=== PATIENT | female | born 1960 | race Caucasian/White ===

== ENCOUNTER 2019-02-09 23:49 | Inpatient (IN) ==
[2019-02-09] MEDS ORDERED: NS 1,000 ML IV ONE (23:56)
[2019-02-09] MEDS ORDERED: HUMULIN R IV ONE (23:56)
[2019-02-10 00:18] LABS: ALLEN TEST YES; BE -7.4 mmoll (-3.0-3.0); BLOOD TYPE ARTERIAL; HCO3-(ACT) 19.1 mmoll (20.0-26.0); METHB 1.2 % (0.0-1.5); O2(CT) 16.3 mL/dL (15.0-23.0); O2HB 93.8 % (95.0-99.0); PCO2(98.6) 31 mmHg (35-45); PO2(98.6) 70 mmHg (60-100); SAMPLE BLOOD; THB 12.3 g/dL (11.5-17.4); pH(98.6) 7.35 (7.35-7.45)
[2019-02-10 00:19] LABS: MODALITY ROOM AIR
[2019-02-10] MEDS ORDERED: TYLENOL PO ONE (00:43)
[2019-02-10 01:17] LABS: BASO# 0.01 X1000 (0.0-0.2); BASO% 0.1 % (0.0-0.8); HEMATOCRIT 37.7 % (37.0-47.0); HEMOGLOBIN 12.7 g/dL (12.0-16.0); IMM GRAN# 0.04 X1000 (0.0-0.04); IMM GRAN% 0.2 % (0.0-0.5); LYMPH% 3.8 % (20.5-51.1); MCH 29.5 PG (27-31); MCHC 33.7 g/dL (33-37); MCV 87.5 FL (81-99); MONO# 1.38 X1000 (0.11-0.59); MONO% 7.4 % (1.7-9.3); MPV 12.5 FL (7.4-10.4); NEUT# 16.49 X1000 (1.4-6.5); NEUT% 88.5 % (42.2-75.2); PLT 164 X1000 (130-400); RBC 4.31 XMIL (4.2-5.4); RDW 12.5 % (11.5-14.5); WBC 18.62 X1000 (4.8-10.8)
[2019-02-10 01:25] LABS: INR 0.99; PROTIME 13.8 Seconds (11.0-16.0); PTT 27.5 Seconds (22.3-41.8)
[2019-02-10 01:41] LABS: ALB/GLOB RATIO 1.8; ALBUMIN 4.7 g/dL (3.5-5.0); CALCIUM 10.4 mg/dL (8.8-10.2); CREATININE 1.2 mg/dL (0.5-0.9); MAGNESIUM 1.3 mg/dL (1.5-2.7); PHOSPHORUS 2.2 mg/dL (2.7-4.5); TOTAL BILIRUBIN 0.46 mg/dL (0.20-1.00); TOTAL PROTEIN 7.3 g/dL (6.3-8.3)
[2019-02-10 01:42] LABS: POTASSIUM 6.2 mmol/L (3.5-5.1)
[2019-02-10 01:42] LABS: URINE SOURCE CLEAN CATCH
[2019-02-10 01:47] LABS: BILIRUBIN URINE NEGATIVE (NEGATIVE); BLOOD URINE NEGATIVE (NEGATIVE); COLOR YELLOW; GLUCOSE URINE >1000 mg/dL (NEGATIVE); KETONE URINE 20 mg/dL (NEGATIVE); LEUKOCYTES URINE TRACE (NEGATIVE); NITRITE URINE NEGATIVE (NEGATIVE); PH URINE 5.5; PROTEIN URINE 30 mg/dL (NEGATIVE); SP GRAVITY URINE 1.018; TURBIDITY URINE CLEAR (CLEAR); UR EPITHELIAL CELLS <10 /HPF (<10); URINE BACTERIA 1+ /HPF; URINE RBC <10 /HPF (<10); UROBILINOGEN URINE NORMAL (NORMAL)
[2019-02-10] MEDS ORDERED: ROCEPHIN 1 GM in NS 50 ML IV ONE (01:49)
[2019-02-10] MEDS ORDERED: MAGNESIUM SULFATE 2 GM/S.W.I. 2 GM/50 ML IVPB IV ONE (01:57)
[2019-02-10] MEDS ORDERED: KAYEXALATE PO ONE (01:57)
[2019-02-10] MEDS ORDERED: SODIUM PHOSPHATE 30 MEQ in NS 250 ML IV ONE (01:59)
[2019-02-10] MEDS ORDERED: CALCIUM GLUCONATE 1 GM in NS 50 ML IV ONE (02:05)
[2019-02-10] MEDS ORDERED: D50W SYRINGE IV ONE (02:05)
--- NOTE | 2019-02-10 02:08 | PROVIDER DOCUMENTATION ---
This chart was entered by Chester Gonzales Scribe, acting as scribe for Nyla Guan MD. HPI-General Adult - General Chief Complaint: High Blood Sugar Stated Complaint: hyperglycemia Time Seen by Provider: 02/09/19 23:50 Source: patient Allergies/Adverse Reactions: Patient Allergies Allergy/AdvReac Type Severity Reaction Status Date / Time olanzapine [From Zyprexa] Allergy Intermediate CONSTIPATIO Verified 12/10/17 23:12 N butalbital Allergy Mild FATIGUE Verified 12/10/17 23:12 fexofenadine HCl * Allergy Mild FLUSHING Verified 12/10/17 23:12 [From Neisha] phenobarbital Allergy Mild weight gain Verified 12/10/17 23:12 egg Allergy Unknown Unknown Verified 12/10/17 23:12 chlorpheniramine maleate * Allergy feel like Verified 12/10/17 23:12 [From Aller-Chlor a drunk Decongestant] metformin Allergy drops Verified 12/10/17 23:12 blood sugar too low pseudoephedrine HCl * Allergy Unknown Verified 12/10/17 23:12 [From Aller-Chlor Decongestant] clonazepam [From Klonopin] AdvReac Mild Agitation Verified 12/10/17 23:12 haloperidol [From Haldol] AdvReac Mild DRY MOUTH Verified 12/10/17 23:12 haloperidol lactate * AdvReac Mild DRY MOUTH Verified 12/10/17 23:12 [From Haldol] quetiapine fumarate * AdvReac Mild FATIGUE Verified 12/10/17 23:12 [From Seroquel] risperidone [From Risperdal] AdvReac Mild ABDOMINAL Verified 12/10/17 23:12 PAIN codeine AdvReac ANAPHYLAXIS Verified 12/10/17 23:12 hydrocodone AdvReac feel like Verified 12/10/17 23:12 a drunk ziprasidone [From Geodon] AdvReac tardive Verified 12/10/17 23:12 dyskinesia Home Medications: Home Medication List Medication Instructions Recorded Confirmed Last Taken Type Cholecalciferol (Vit D3) [Vitamin 5,000 unit PO DAILY #30 cap 12/22/17 Unknown Rx D] Levetiracetam [Keppra] 500 mg PO BID #60 tab 12/22/17 Unknown Rx Levothyroxine [Synthroid] 25 microgm PO QAM #30 tab 12/22/17 Unknown Rx Lisinopril 40 mg PO DAILY #30 tab 12/22/17 Unknown Rx Montelukast Sodium 10 mg PO DAILY #30 tab 12/22/17 Unknown Rx Risperidone [Risperdal] 2 mg PO BID #120 tab 12/22/17 Unknown Rx Rosuvastatin Calcium 20 mg PO DAILY #30 tab 12/22/17 Unknown Rx Sitagliptin [Januvia] 100 mg PO DAILY #60 tab 12/22/17 Unknown Rx Magnesium Cl D.r. [Slow-Mag] 64 mg PO DAILY #30 tab 12/23/17 Unknown Rx - History of Present Illness -Gen Adult Nature of Presenting Problems: Pt is a 58 y.o F presents to the [facility] and reports not feeling well for a couple of weeks. She reports at home a blood sugar greater than 400. Pt reports headache, ear pain, nausea and vomiting. Location of Pain/Injury: reports: generalized (not feeling well) Pain Radiation: reports: no radiation Quality of Pain: reports: aching Severity: reports: moderate Onset/Duration: reports: other (couple weeks) Timing: reports: still present Associated Symptoms: reports: EENT symptoms, fever/chills, headaches, sinus congestion/drainage, vomiting. denies: diarrhea, rash, syncope Similar Symptoms Previously?: No Recently seen or treated by another doctor?: No - Diabetes Related Context Context: reports: high blood sugar Review of Systems - Adult - REVIEW OF SYSTEMS - ADULT Constitutional: denies: chills, fever Eyes: reports: blurred vision. denies: discharge, dry eyes Ears, Nose, Mouth & Throat: reports: ear pain, sinus problem Cardiovascular: denies: chest pain, edema Respiratory: denies: shortness of breath, wheezing Gastrointestinal: reports: nausea, vomiting. denies: abdominal pain Genitourinary: denies: dysuria, discharge Musculoskeletal: denies: back pain, neck pain Integumentary: reports: no symptoms reported Neurological: reports: headache/migraines. denies: dizziness/vertigo, slurred speech Psychiatric: reports: no symptoms reported Endocrine: reports: no symptoms reported Hematologic/Lymphatic: reports: no symptoms reported Allergic/Immunologic: reports: no symptoms reported All Other Systems: Reviewed and Negative Past History - Adult - PAST MEDICAL HISTORY-ADULT Review of Records: reports: Old Records Reviewed, Nursing Assessment Review, Medications Reviewed Major Childhood Illnesses: reports: denies history Cardiovascular: reports: HTN Respiratory: reports: asthma Gastrointestinal: reports: denies history Obstetrical/Gynecological: reports: denies history Genitourinary: reports: denies history Musculoskeletal: reports: denies history Neurological: reports: Seizures/Epilepsy Psychiatric: reports: bipolar, other (schizoeffective d/o) Endocrine/Immune: reports: Diabetes Other Conditions: reports: denies history - PRIOR SURGERIES/PROCEDURES Surgical/Procedure History: reports: - IMMUNIZATION STATUS Childhood Immunizations: See Nurse Assessment Flu Vaccine: See Nurse Assessment - FAMILY HISTORY Family History: reviewed, not pertinent - SOCIAL HISTORY Smoking: cigarettes, greater than 1 pack/day Living Situation: family Physical Exam-General - PHYSICAL EXAM-ADULT Initial Vital Signs Reviewed: Yes - CONSTITUTIONAL General Appearance: alert, no apparent distress - EYES Eyes: PERRL/EOMI, pink conjunctivae - HEAD, EARS, NOSE, MOUTH & THROAT HENMT: moist mucous membranes, normal ENT inspection, pharynx normal - NECK Neck: full range of motion, supple, normal inspection - RESPIRATORY Respiratory: lungs clear, normal breath sounds, no pleuratic chest pain, no respiratory distress, no accessory muscle use - CARDIOVASCULAR Cardiovascular: normal peripheral pulses, regular rate, rhythm - GASTROINTESTINAL (ABDOMEN) Abdominal Exam: normal bowel sounds, soft, tenderness (diffuse mild) - MUSCULOSKELETAL Back Exam: normal inspection, no CVA tenderness, no vertebral tenderness Extremity: normal range of motion, non-tender, normal gait, normal inspection, no pedal edema - SKIN Integumentary: normal color, normal turgor, warm/dry - NEUROLOGIC Neurologic: grossly normal, no motor/sensory deficits - PSYCHIATRIC Psych/Mental Status: normal mood/affect, normal thought content, normal thought process, oriented x 3 Progress - PLAN OF CARE/RESULTS Progress/Plan/Lab Results: Vital Signs - 8 hr 02/10/19 00:02 Temperature 99.0 F Pulse Rate 94 H Respiratory Rate 16 Blood Pressure 156/85 O2 Sat by Pulse Oximetry 95 Laboratory Results - last 24 hr 02/09/19 02/09/19 23:51 23:55 Specimen Type ARTERIAL Sample Site R RADIAL pH 7.35 pCO2 31 L pO2 70 HCO3 19.1 L Base Excess -7.4 L Oxyhemoglobin 93.8 L ABG O2 Sat (Calculated) 16.3 ABG O2 Saturation 97.0 ABG Carboxyhemoglobin 2.10 ABG Methemoglobin 1.2 Vinnie Test YES A-a O2 Difference 41.0 Total Hemoglobin 12.3 Lactate 1.70 Blood Gas Modality ROOM AIR FiO2 % 21.0 POC Glucose 485 H Orders Category Date Time Status Cardiac Monitoring DIRECTED Care 02/09/19 23:51 Active Finger Stick Blood Sugar (ED) DIRECTED Care 02/09/19 23:51 Active Oxygen Therapy- ED Nursing DIRECTED Care 02/09/19 23:51 Active Saline Loc NOW Care 02/09/19 23:51 Active CHEST-PORTABLE [RAD] Stat Exams 02/09/19 23:[address] MAXILLOFACIAL(SINUS) W/O CO [CT] Stat Exams 02/10/19 00:44 Taken ABG [RESP] Routine Lab 02/09/19 23:51 Completed ACETONE SERUM [CHEM] Stat Lab 02/10/19 00:42 Ordered CBC WITH ELECTRONIC DIFF [HEME] Stat Lab 02/10/19 00:59 Ordered CK PROFILE [SP CHEM] Stat Lab 02/10/19 00:59 Ordered COMPREHENSIVE METABOLIC PANEL [CHEM] Stat Lab 02/10/19 00:59 Ordered LACTATE, PLASMA [CHEM] Stat Lab 02/10/19 00:59 Ordered MAGNESIUM [CHEM] Stat Lab 02/10/19 00:59 Ordered PHOSPHORUS [CHEM] Stat Lab 02/10/19 00:59 Ordered PROTIME WITH INR [COAG] Stat Lab 02/10/19 00:59 Ordered PTT [COAG] Stat Lab 02/10/19 00:59 Ordered TROPONIN T Stat Lab 02/10/19 00:59 Ordered URINALYSIS [URINALYSIS] Stat Lab 02/09/19 23:52 Uncollected 0.9% Sodium Chloride Inj [Ns] 1,000 ml Med 02/09/19 23:56 Discontinued IV 999 mls/hr Acetaminophen [Tylenol] Med 02/10/19 00:43 Discontinued 1,000 mg PO NOW ONE Insulin Human Regular [Humulin R] Med 02/09/19 23:56 Discontinued 10 unit IV NOW ONE Result Diagrams: 02/10/19 00:55 02/10/19 00:55 - CONSULTS/PCP/HOSPITALIST Notification #1 *Consult/PCP/Hospitalist*: Dr. Garza Time Discussed: 02:06 Consult Disposition: Admit Departure - Departure Date of Disposition Decision: 02/10/19 Time of Disposition Decision: 02:06 DIAGNOSIS: Hyperglycemia due to type 1 diabetes mellitus, Electrolyte imbalance, Transaminitis, SIRS (systemic inflammatory response syndrome) Disposition: ADMITTED INPATIENT 09 Certified Medical Emergency: Emergent Condition: Stable - Critical Care Note This patient required my direct & personal management of CC.: No Attestation - Physician/ PANCHO Attestation Patient care was provided by Advanced Practice Provider:: No The physician spent face to face time with patient:: Yes Advanced Practice Provider documentation review:: Supervising physician onsite and consulted in the evaluation and care of this patient. The physician did have a face to face encounter with the patient. This chart was documented by the indicated scribe, (Chester Gonzales Scribe) and accurately reflects the services I performed and decisions made by me, Nyla Guan MD, as attested by the provider's signature.
--- NOTE | 2019-02-10 04:36 | HISTORY AND PHYSICAL ---
PRIMARY CARE PHYSICIAN: Dr. Garcia. CHIEF COMPLAINT: Elevated blood glucose. Not feeling well. HISTORY OF PRESENTING ILLNESS: The patient is a 58-year-old female with a history of diabetes mellitus type 2, hypertension, hyperlipidemia, and seizure disorder who had presented to the emergency department with 2 days history of having nausea and not feeling well. The patient states that she was not taking her insulin because she did not have any food at home and she was afraid her blood glucose will bottom out. She was brought to the emergency department and it was noted that she had elevated blood glucose in the 400 ranges. She was given IV insulin, it was also noted that her potassium was elevated and this was stabilized in the ED. Due to her overall presenting symptoms she will require admission for further management. At the time of my examination she had denied any fever, chills, chest pain, shortness of breath or any weight changes, but complained of sinus pressure, nausea, and not feeling well. PAST MEDICAL HISTORY: Include diabetes mellitus type 2, hypertension, hyperlipidemia, seizure disorder. PAST SURGICAL HISTORY: Left knee surgery. ALLERGIES: To olanzapine, fexofenadine, phenobarbital. CURRENT MEDICATIONS: Include Keppra 500 mg p.o. b.i.d., levothyroxine 25 mcg p.o. q.a.m., lisinopril 40 mg p.o. daily, Risperdal 2 mg p.o. b.i.d., Rosuvastatin 20 mg p.o. daily, Januvia 100 mg p.o. daily. SOCIAL HISTORY: She is a former smoker. Denies any history of alcohol or illicit drug use. FAMILY HISTORY: No history of coronary disease. REVIEW OF SYSTEMS: Fourteen point review of systems is as in HPI. Other systems negative. PHYSICAL EXAMINATION: GENERAL: A cooperative friendly female. She is resting comfortably now. VITAL SIGNS: Temperature 99.0 degrees, pulse 94, respirations 16, blood pressure 106/85. HEENT: Atraumatic, normocephalic. Extraocular movements intact. There is left maxillary sinus tenderness. CHEST: Clear to auscultation. CARDIOVASCULAR: Regular rate and rhythm. ABDOMEN: Soft. Positive bowel sounds. EXTREMITIES: No edema. NEUROLOGIC: She is awake, alert and oriented x3. GENITOURINARY: No bladder distention. SKIN: Warm. LABORATORIES AND STUDIES: WBC is 18.62, hemoglobin 12.7, hematocrit 37.7, platelets 164,000. Sodium 132, potassium 6.2, chloride 98, CO2 is 19, BUN is 32, creatinine is 1.2, glucose is 414. ASSESSMENT: This is a 58-year-old female with a history of diabetes mellitus type 2, hypertension, hyperlipidemia and seizure disorder, who presented to emergency department complaining of having nausea and not feeling well, and also elevated blood glucose. She was evaluated in the emergency department and her laboratories had shown that she had elevated potassium and elevated blood glucose. Her hyperkalemia was stabilized and she was given intravenous insulin for her blood glucose, and subsequently she will require admission for further management. 1. Diabetes mellitus type 2 with hyperglycemia. 2. Hyperkalemia. 3. Leukocytosis. 4. Suspected left maxillary sinusitis. 5. Seizure disorder. PLAN: 1. We will admit the patient to medical floor with telemetry. 2. Continue with IV fluids, and sliding scale insulin regimen. 3. We will monitor her electrolytes closely. 4. Check blood cultures and start the patient on empiric antibiotics. 5. Continue the patient on Flonase to help with her congestion. 6. Restart her home medications 7. Put the patient on DVT prophylaxis with SCDs. 8. We will continue to follow, reassess and make further recommendation based on the patient's clinical course. cc: Alen Garza MD MTDD
[2019-02-10] MEDS ORDERED: FLONASE NAS ONE (04:56)
--- NOTE | 2019-02-10 05:53 | Diag Imaging Result Doc PS360 ---
EXAM: CT MAXILLOFACIAL(SINUS) W/O CO HISTORY: mastoiditis left TECHNIQUE: CT sinuses without contrast COMPARISON: None. FINDINGS: The mastoid sinuses are well developed and filled with air. There is no sinus opacification. No air-fluid levels. No mucosal thickening. No bone destruction. No bony expansion. IMPRESSION: No sinusitis. A preliminary report was given at 1:36 AM Electronically signed by Guanaco Vega 02/10/2019 5:50 AM
--- NOTE | 2019-02-10 05:58 | Diag Imaging Result Doc PS360 ---
EXAM: CHEST-PORTABLE HISTORY: infection TECHNIQUE: Portable chest single view COMPARISON: 08/03/2016 FINDINGS: The lungs are well expanded. The heart is not enlarged. The vessels are not distended. There are no infiltrates. No effusion identified. IMPRESSION: No pneumonia. Electronically signed by Guanaco Vega 02/10/2019 5:56 AM
[2019-02-10] MEDS: HUMULIN R SUBQ SCH ×4 (06:00→21:15)
[2019-02-10] MEDS: LEVAQUIN 500 MG/D5W 500 MG/100 ML IVPB IV SCH (07:08)
[2019-02-10] MEDS: NS 1,000 ML IV SCH ×2 (07:08→18:13)
--- NOTE | 2019-02-10 07:28 | EKG Report ---
Test Performed on : 02/10/2019 02:28:01 AM Test Reason : CP Blood Pressure : / mmHG Vent. Rate : 091 BPM Atrial Rate : 091 BPM P-R Int : 154 ms QRS Dur : 088 ms QT Int : 340 ms P-R-T Axes : 067 043 058 degrees QTc Int : 418 ms Normal sinus rhythm. Normal ECG When compared with ECG of 10-DEC-2017 23:09, Vent. rate has increased BY 34 BPM Unconfirmed Result
[2019-02-10 07:30] LABS: EOS# 0.01 X1000 (0.0-0.7); EOS% 0.1 % (0.0-10.0); HEMATOCRIT 38.3 % (37.0-47.0); LYMPH# 0.66 X1000 (1.2-3.4); LYMPH% 8.9 % (20.5-51.1); MCH 30.1 PG (27-31); MCHC 33.9 g/dL (33-37); MCV 88.7 FL (81-99); MONO# 0.07 X1000 (0.11-0.59); MONO% 0.9 % (1.7-9.3); MPV 11.8 FL (7.4-10.4); NEUT# 6.67 X1000 (1.4-6.5); NEUT% 90.1 % (42.2-75.2); PLT 147 X1000 (130-400); RBC 4.32 XMIL (4.2-5.4); RDW 12.8 % (11.5-14.5); WBC 7.41 X1000 (4.8-10.8)
[2019-02-10 07:36] LABS: CALCIUM 10.3 mg/dL (8.8-10.2); CREATININE 1.2 mg/dL (0.5-0.9); POTASSIUM 4.5 mmol/L (3.5-5.1)
[2019-02-10 07:59] LABS: BANDS 8 % (0-1); LYMPHS 2 % (21-51); SEGS 88 % (42-75)
[2019-02-10] MEDS: TYLENOL PO PRN (09:35)
[2019-02-10 10:02] LABS: FREE T4 1.03 ng/dL (0.93-1.70); TSH 1.28 uIUmL (0.27-4.20)
[2019-02-10] MEDS: JANUVIA PO SCH (11:56)
[2019-02-10] MEDS: KEPPRA PO SCH ×2 (11:56→21:11)
[2019-02-10] MEDS: SINGULAIR PO SCH (11:56)
[2019-02-10] MEDS: PRINIVIL PO SCH (11:57)
[2019-02-10] MEDS: BASAGLAR SUBQ SCH (11:57)
[2019-02-10] MEDS: SLOW-MAG PO SCH (11:57)
--- NOTE | 2019-02-10 17:29 | PROGRESS NOTE ---
DATE: 02/10/2019 SUBJECTIVE: The patient was admitted early this morning with elevated blood sugar, not feeling well. This is a 58-year-old with a history of diabetes type 2, hypertension, hyperlipidemia, seizure disorder, presented to the emergency department with a 2-day history of having nausea and not feeling well. The patient states she was not taking her insulin because she did not have any food at home and she was afraid her blood sugar would bottom out. Brought to the emergency room and had elevated blood sugar 400. Given IV insulin. It was also noted that her potassium was elevated and stabilized that in the emergency room. Was admitted for follow up to see if we get her sugars down. PAST MEDICAL HISTORY: 1. Diabetes mellitus type 2. 2. Hypertension. 3. Hyperlipidemia. 4. Seizure disorder. 5. Left knee surgery in the past. OBJECTIVE: Vital signs: Today temp 98.3 degrees, pulse 99, respirations 16, blood pressure 145/125, and this has come down to 99/53 with some blood pressure medicine. Lungs: Clear in all lung hughes. Cardiovascular: Regular rhythm and rate without murmur or S3. Abdomen: Soft. Skin: Warm and dry. Blood sugars 374 and 368 were the last 2. LABS: Initially when she came in white count was 18,620, hematocrit 37, platelet count 164,000. This morning white count is 7,410, hematocrit 38, platelet count 147,000. Electrolytes: Sodium 136, potassium 4.5, chloride 99, BUN 29, creatinine 1.2. ASSESSMENT AND PLAN: 1. Diabetes mellitus type 2 with hyperglycemia. 2. Presented with hyperkalemia and this has been corrected. 3. Nausea and says that she is having frequent bowel movements, but does not report any diarrhea. CURRENT MEDICATIONS: She is on vitamin D3 5000 units a day, Prolixin 10 mg at bedtime, insulin glargine 50 units subcutaneous daily, Keppra 500 mg b.i.d., levofloxacin 500 mg IV q.24 hours, Prinivil 40 mg a day, Singulair 10 mg daily, sitagliptin 100 mg daily. She got 1 dose of ceftriaxone yesterday. She is on a diabetic diet. cc: Vinnie Caballero MD
[2019-02-10] MEDS: PROLIXIN PO SCH (21:12)
[2019-02-11] MEDS: TYLENOL PO PRN (00:16)
[2019-02-11] MEDS: NS 1,000 ML IV SCH (04:43)
[2019-02-11] MEDS: HUMULIN R SUBQ SCH ×5 (06:45→22:35)
[2019-02-11] MEDS: JANUVIA PO SCH (09:45)
[2019-02-11] MEDS: LEVAQUIN 500 MG/D5W 500 MG/100 ML IVPB IV SCH (09:45)
[2019-02-11] MEDS: SLOW-MAG PO SCH (09:45)
[2019-02-11] MEDS: KEPPRA PO SCH ×2 (09:45→22:35)
[2019-02-11] MEDS: PRINIVIL PO SCH ×2 (09:45→09:56)
[2019-02-11] MEDS: SINGULAIR PO SCH (09:46)
[2019-02-11] MEDS: VITAMIN D PO SCH (09:46)
[2019-02-11] MEDS ORDERED: INSULIN PEN NEEDLES ONE (10:15)
[2019-02-11] MEDS: BASAGLAR SUBQ SCH (10:20)
[2019-02-11] MEDS: ALPHAGAN 0.2% OPHTH SOLN OPH SCH ×2 (13:09→16:47)
--- NOTE | 2019-02-11 17:14 | PROGRESS NOTE ---
DATE: 02/11/2019 SUBJECTIVE: She is feeling better, a little stronger. She is using the bedside commode, did not seem to have to go the bathroom as much today, but she is urinating pretty frequently. OBJECTIVE: Temperature 97.8 degrees, pulse 82, respirations 20, blood pressure 110/50. Pupils are equal and round. Lungs are clear in all lung hughes. Cardiovascular: Regular rhythm and rate without murmur or S3. Abdomen is soft. Skin is warm and dry. Urine output: 600 mL. I am not sure it was reported yesterday. DIAGNOSTIC STUDIES: Her blood sugars 234 and 284 are the most recent ones. Labs reviewed from the . Hematocrit 38, hemoglobin 13. ASSESSMENT AND PLAN: 1. Diabetes mellitus, type 2. Hyperglycemia seems to be better. 2. Hyperkalemia, which has been corrected. 3. Frequent bowel movements. 4. Weakness. She seems to be doing a little better from those aspects. 5. She has history of schizophrenia. She is on Prolixin 10 mg at bedtime. 6. She has a history of seizures, for which she is on Keppra 500 mg b.i.d. REVIEW OF HER ORDERS: Vitamin D3 of 5000 units a day, Prolixin 10 mg at bedtime, Keppra 500 mg b.i.d., Prinivil 40 mg a day, Levaquin 500 mg IV q.24 h., Januvia 100 mg daily, Singulair 10 mg a day, magnesium chloride 64 mg a day. NOTE: She seems to be improving. We will continue to keep her on a sliding scale and get her sugars down. Hopefully, she will be able to be discharged on Saturday. cc: Vinnie Caballero MD
[2019-02-11] MEDS: PROLIXIN PO SCH (22:35)
[2019-02-12] MEDS: HUMULIN R SUBQ SCH ×3 (06:47→15:19)
[2019-02-12] MEDS: LEVAQUIN 500 MG/D5W 500 MG/100 ML IVPB IV SCH (09:05)
[2019-02-12] MEDS: BASAGLAR SUBQ SCH (09:06)
[2019-02-12] MEDS: ALPHAGAN 0.2% OPHTH SOLN OPH SCH ×3 (09:06→16:08)
[2019-02-12] MEDS: KEPPRA PO SCH (09:07)
[2019-02-12] MEDS: PRINIVIL PO SCH (09:07)
[2019-02-12] MEDS: JANUVIA PO SCH (09:07)
[2019-02-12] MEDS: VITAMIN D PO SCH (09:07)
[2019-02-12] MEDS: SLOW-MAG PO SCH (09:07)
[2019-02-12] MEDS: SINGULAIR PO SCH (09:44)
[2019-02-12 11:08] VITALS: BP 119/48
--- NOTE | 2019-02-12 16:19 | DISCHARGE SUMMARY ---
ADMISSION DATE: 02/10/2019 DISCHARGE DATE: 02/12/2019 HOSPITAL COURSE: She has no primary care physician, but later when we asked her, she sees Dr. Garcia, so she does see Dr. Garcia. A 58-year-old female with history of diabetes mellitus type 2, hypertension, hyperlipidemia, seizure disorder, presented to the emergency room with a 2-day history of having nausea and not feeling well. The patient states she is not taking her insulin because she did not have any food in the home, and she was afraid her blood sugars would drop too low. Brought into the emergency department and she had elevated sugars in the 400 range. She is given some IV insulin. It was noted that her potassium was elevated, and this was stabilized in the emergency room. Due to her overall presenting symptoms, they decided to admit her and watch her. She continued to improve. We put her on pattern sugars and sliding scale. REVIEW OF PAST MEDICAL HISTORY: Diabetes mellitus type 2, hypertension, hyperlipidemia, seizure disorder. I believe she has schizophrenia. SURGICAL HISTORY: Status post left knee surgery. She was eating a diabetic diet. Bowels are moving appropriately. Blood pressures remained well under control. Blood sugars came down into the higher 200s. MEDICATIONS FOR DISCHARGE: She will be on vitamin D 5000 units a day, Prolixin 10 mg p.o. at bedtime, Keppra 500 mg b.i.d., Prinivil 40 mg daily, Slow-Mag 64 mg a day, Singulair 10 mg a day, Januvia 100 mg daily. She was taking Latanoprost eyedrops, which she will continue in her left eye. Synthroid was 25 mcg a day, and her insulin regimen: She was on insulin glargine 50 units subcutaneously once a day so we will continue all those and discharge her home. FOLLOWUP: She is to follow up with Dr. Garcia in a couple weeks. cc: Vinnie Caballero MD
== END 2019-02-12 18:58 | disposition home health service (06) | DRG 639 ==
LOC: ED 23:49 → 3N 02-10 04:14 → SUATTDRO 02-10 04:14
PROVIDERS: ATTEND Emergency Medicine
CPT/HCPCS: 70486; 71010; 71045; 80048; 80053; 81001; 82009; 82550; 82805; 82948; 83605; 83735; 84100; 84439; 84443; 84484; 85025; 85610; 85730; 87040; 87077; 87088; 87186; 87205; 87275; 87276; 87324; 87804; 89055; 93005; 96361; 96365; 96368; 96375; 99285; A9270; J0610; J0696; J1956; J3475; J7030; J7050; XXXXX

== ENCOUNTER 2019-07-26 13:09 | Inpatient (IN) ==
--- NOTE | 2019-07-26 13:53 | EKG Report ---
Test Performed on : 07/26/2019 1:26:23 PM Test Reason : CHEST DISCOMFORT Blood Pressure : / mmHG Vent. Rate : 070 BPM Atrial Rate : 070 BPM P-R Int : 142 ms QRS Dur : 090 ms QT Int : 368 ms P-R-T Axes : 036 042 051 degrees QTc Int : 397 ms Normal sinus rhythm. with sinus arrhythmia. Normal ECG When compared with ECG of 10-FEB-2019 02:28, No significant change was found Unconfirmed Result
[2019-07-26 14:04] LABS: BASO# 0.01 X1000 (0.0-0.2); BASO% 0.1 % (0.0-0.8); EOS# 0.03 X1000 (0.0-0.7); EOS% 0.4 % (0.0-10.0); HEMATOCRIT 39.1 % (37.0-47.0); HEMOGLOBIN 13.2 g/dL (12.0-16.0); IMM GRAN# 0.03 X1000 (0.0-0.04); IMM GRAN% 0.4 % (0.0-0.5); LYMPH# 2.38 X1000 (1.2-3.4); LYMPH% 33.1 % (20.5-51.1); MCH 29.7 PG (27-31); MCHC 33.8 g/dL (33-37); MCV 87.9 FL (81-99); MONO# 0.52 X1000 (0.11-0.59); MONO% 7.2 % (1.7-9.3); MPV 12.4 FL (7.4-10.4); NEUT# 4.23 X1000 (1.4-6.5); NEUT% 58.8 % (42.2-75.2); PLT 186 X1000 (130-400); RBC 4.45 XMIL (4.2-5.4); RDW 12.5 % (11.5-14.5)
--- NOTE | 2019-07-26 14:09 | Diag Imaging Result Doc PS360 ---
CHEST-2 VIEWS - 07/26/2019 INDICATION: epigastric pain COMPARISON: 02/10/2019 FINDINGS: The lungs are normally expanded and clear. Heart size and mediastinal contours are normal. No pneumothorax or pleural effusion. IMPRESSION: Negative exam. Electronically signed by Woo Ramirez 07/26/2019 2:06 PM
[2019-07-26 14:22] LABS: URINE SOURCE CLEAN CATCH
[2019-07-26 14:37] LABS: ALB/GLOB RATIO 1.7; ALBUMIN 4.8 g/dL (3.5-5.0); CALCIUM 10.6 mg/dL (8.8-10.2); CREATININE 1.4 mg/dL (0.5-0.9); TOTAL BILIRUBIN 0.31 mg/dL (0.20-1.00); TOTAL PROTEIN 7.6 g/dL (6.3-8.3)
[2019-07-26 14:38] LABS: BILIRUBIN URINE NEGATIVE (NEGATIVE); BLOOD URINE NEGATIVE (NEGATIVE); COLOR YELLOW; GLUCOSE URINE 100 mg/dL (NEGATIVE); KETONE URINE NEGATIVE (NEGATIVE); LEUKOCYTES URINE NEGATIVE (NEGATIVE); NITRITE URINE NEGATIVE (NEGATIVE); PROTEIN URINE 30 mg/dL (NEGATIVE); SP GRAVITY URINE 1.017; TURBIDITY URINE CLEAR (CLEAR); UROBILINOGEN URINE NORMAL (NORMAL)
[2019-07-26 14:39] LABS: UR EPITHELIAL CELLS <10 /HPF (<10); URINE BACTERIA NEGATIVE /HPF; URINE RBC <10 /HPF (<10); URINE WBC <10 /HPF (<10)
[2019-07-26 14:43] LABS: POTASSIUM 6.4 mmol/L (3.5-5.1)
[2019-07-26] MEDS ORDERED: HUMULIN R IV ONE ×2 (14:50→15:08)
[2019-07-26] MEDS ORDERED: NS 1,000 ML IV ONE (14:51)
--- NOTE | 2019-07-26 14:57 | PROVIDER DOCUMENTATION ---
This chart was entered by Mohit Kwan Scribe, acting as scribe for Jamie Linda DO. HPI-Chest Pain - General Chief Complaint: Anxiety Stated Complaint: ANXIETY Time Seen by Provider: 07/26/19 13:13 Source: patient Allergies/Adverse Reactions: Patient Allergies Allergy/AdvReac Type Severity Reaction Status Date / Time olanzapine [From Zyprexa] Allergy Intermediate CONSTIPATIO Verified 12/10/17 23:12 N butalbital Allergy Mild FATIGUE Verified 12/10/17 23:12 fexofenadine HCl * Allergy Mild FLUSHING Verified 12/10/17 23:12 [From Neisha] phenobarbital Allergy Mild weight gain Verified 12/10/17 23:12 egg Allergy Unknown Unknown Verified 12/10/17 23:12 chlorpheniramine maleate * Allergy feel like Verified 12/10/17 23:12 [From Aller-Chlor a drunk Decongestant] metformin Allergy drops Verified 12/10/17 23:12 blood sugar too low pseudoephedrine HCl * Allergy Unknown Verified 12/10/17 23:12 [From Aller-Chlor Decongestant] clonazepam [From Klonopin] AdvReac Mild Agitation Verified 12/10/17 23:12 haloperidol [From Haldol] AdvReac Mild DRY MOUTH Verified 12/10/17 23:12 haloperidol lactate * AdvReac Mild DRY MOUTH Verified 12/10/17 23:12 [From Haldol] quetiapine fumarate * AdvReac Mild FATIGUE Verified 12/10/17 23:12 [From Seroquel] risperidone [From Risperdal] AdvReac Mild ABDOMINAL Verified 12/10/17 23:12 PAIN codeine AdvReac ANAPHYLAXIS Verified 12/10/17 23:12 hydrocodone AdvReac feel like Verified 12/10/17 23:12 a drunk ziprasidone [From Geodon] AdvReac tardive Verified 12/10/17 23:12 dyskinesia Home Medications: Home Medication List Medication Instructions Recorded Confirmed Last Taken Type Cholecalciferol (Vit D3) [Vitamin 5,000 unit PO DAILY #30 cap 12/22/17 02/10/19 02/09/19 Rx D] Levetiracetam [Keppra] 500 mg PO BID #60 tab 12/22/17 02/10/19 02/09/19 Rx Levothyroxine [Synthroid] 25 microgm PO QAM #30 tab 12/22/17 Unknown Rx Lisinopril 40 mg PO DAILY #30 tab 12/22/17 02/10/19 02/09/19 Rx Montelukast Sodium 10 mg PO DAILY #30 tab 12/22/17 02/10/19 02/10/19 Rx Risperidone [Risperdal] 2 mg PO BID #120 tab 12/22/17 Unknown Rx Magnesium Cl D.r. [Slow-Mag] 64 mg PO DAILY #30 tab 12/23/17 02/10/19 02/09/19 Rx Fluphenazine [Prolixin] 10 mg PO HS 02/10/19 02/10/19 02/08/19 History Insulin Glargine,Hum.rec.anlog 50 units SQ AC 02/10/19 02/10/19 Unknown History [Lantus Solostar] Sitagliptin Phosphate [Januvia] 100 mg PO AC 02/10/19 02/10/19 02/09/19 History Brimonidine 0.2% Ophth Soln 1 drp OPH TID 02/11/19 02/11/19 02/09/19 History [Alphagan 0.2% Ophth Soln] Latanoprost/Pf [Latanoprost 0.005% 1 drp LEFT EYE HS 02/11/19 02/11/19 Unknown History Eye Drop] Mometasone/Formoterol [Dulera 200 2 puff INH BID 02/11/19 02/11/19 Unknown History Mcg/5 Mcg Inhaler] Rosuvastatin Calcium 10 mg PO DAILY 02/11/19 02/11/19 Unknown History Ciprofloxacin HCl [Cipro] 500 mg PO BID #10 tab 05/04/19 Unknown Rx Diphenoxylate/Atropine [Lomotil] 1 ea PO Q6H PRN PRN #12 tab 05/04/19 Unknown Rx Ondansetron Odt [Zofran 4 mg Odt] 4 mg PO Q6H PRN PRN #10 tab 05/04/19 Unknown Rx - History of Present Illness-CP Nature of Presenting Problem: 59 yof presents to the ed with c/o epigastric pain. pt comes in "not feeling well" ,pt has some N/V last night one episode. pt took 4 benthal Location: reports: epigastric Chest Pain Radiation: reports: no radiation Quality of Pain: reports: none Severity in ED: mild Onset/Duration: just prior to arrival Timing: still present Context/Activities at Onset: reports: light activity Modifying Factors: improves with: nothing Associated Symptoms: reports: headache, nausea, vomiting. denies: shortness of breath Nitro Today/Relief: no nitro taken today Aspirin Treatment Today: no aspirin today Similar Symptoms Previously?: No Recently Seen Here or By Another Healthcare Provider: No Review of Systems - Adult - REVIEW OF SYSTEMS - ADULT Constitutional: reports: no symptoms reported Eyes: reports: decreased vision (left eye unresponsive) Ears, Nose, Mouth & Throat: reports: no symptoms reported Cardiovascular: reports: chest pain. denies: heart murmur, palpitations Respiratory: denies: shortness of breath, wheezing Gastrointestinal: reports: nausea, vomiting. denies: abdominal pain, diarrhea Genitourinary: reports: no symptoms reported Musculoskeletal: reports: no symptoms reported Integumentary: reports: no symptoms reported Neurological: reports: headache/migraines. denies: dizziness/vertigo, syncope Psychiatric: reports: no symptoms reported Endocrine: reports: no symptoms reported Hematologic/Lymphatic: reports: no symptoms reported Allergic/Immunologic: reports: no symptoms reported All Other Systems: Reviewed and Negative Past History - Adult - PAST MEDICAL HISTORY-ADULT Review of Records: reports: Old Records Reviewed, Nursing Assessment Review, Medications Reviewed, Social history reviewed & non-contributory. Major Childhood Illnesses: reports: denies history Cardiovascular: reports: HTN Respiratory: reports: asthma Gastrointestinal: reports: denies history Obstetrical/Gynecological: reports: denies history Genitourinary: reports: denies history Musculoskeletal: reports: denies history Neurological: reports: Seizures/Epilepsy Psychiatric: reports: bipolar, other (schizoeffective d/o) Endocrine/Immune: reports: Diabetes Other Conditions: reports: denies history - PRIOR SURGERIES/PROCEDURES Surgical/Procedure History: reports: - IMMUNIZATION STATUS Childhood Immunizations: See Nurse Assessment Flu Vaccine: See Nurse Assessment - FAMILY HISTORY Family History: reviewed, not pertinent - SOCIAL HISTORY Smoking: quit greater than 1 year Alcohol Use Frequency: sober (former use) Living Situation: family Physical Exam-General - PHYSICAL EXAM-ADULT Initial Vital Signs Reviewed: Yes - CONSTITUTIONAL General Appearance: appears well, alert, no apparent distress, obese - EYES Eyes: other (left eye unresponsive cloudy) - HEAD, EARS, NOSE, MOUTH & THROAT HENMT: other (left eye unresponsive cloudy) - NECK Neck: non-tender, full range of motion, supple - RESPIRATORY Respiratory: chest non-tender, lungs clear, normal breath sounds. negative: crackles, rales - CARDIOVASCULAR Cardiovascular: normal peripheral pulses, regular rate, rhythm. negative: no murmur - GASTROINTESTINAL (ABDOMEN) Abdominal Exam: normal bowel sounds, non tender, soft. negative: guarding, rigid - LYMPHATIC Lymphatic: no adenopathy - MUSCULOSKELETAL Back Exam: normal inspection, no CVA tenderness Extremity: normal range of motion, non-tender, normal gait, no calf tenderness - SKIN Integumentary: normal color, normal turgor, warm/dry - NEUROLOGIC Neurologic: grossly normal - PSYCHIATRIC Psych/Mental Status: normal mood/affect, normal thought content, normal thought process, oriented x 3 - HEART Score HEART Score: History: Slightly Suspicious HEART Score: ECG: Normal HEART Score: Age: 45-65 Years HEART Score: Risk Factors for Atherosclerotic Disease: 1 or 2 Risk Factors Progress - PLAN OF CARE/RESULTS Progress/Plan/Lab Results: Vital Signs - 8 hr 07/26/19 13:15 Temperature 98.3 F Pulse Rate 67 Respiratory Rate 16 Blood Pressure 163/83 O2 Sat by Pulse Oximetry 97 Laboratory Results - last 24 hr 07/26/19 07/26/19 07/26/19 13:26 13:35 13:35 WBC RBC Hgb Hct MCV MCH MCHC RDW Std Deviation Plt Count MPV Immature Gran % (Auto) Neut % (Auto) Lymph % (Auto) Cole % (Auto) Eos % (Auto) Baso % (Auto) Immature Gran # (Auto) Neut # (Auto) Lymph # (Auto) Cole # (Auto) Eos # (Auto) Baso # (Auto) Sodium 140 Potassium 6.4 H* Chloride 102 Carbon Dioxide 24 L Anion Gap 14 BUN 30 H Creatinine 1.4 H Estimated GFR/1.73 m2 38 BUN/Creatinine Ratio 21 Glucose 271 H POC Glucose 264 H Calculated Osmolality 295 Calcium 10.6 H Total Bilirubin 0.31 AST 15 ALT 19 Alkaline Phosphatase 104 Creatine Kinase 59 Troponin T < 0.010 Total Protein 7.6 Albumin 4.8 Globulin 2.8 Albumin/Globulin Ratio 1.7 Urine Source Urine Color Urine Turbidity Urine pH Ur Specific Napoleon Urine Protein Ur Glucose (Stick) Ur Ketones (Stick) Urine Blood Urine Nitrite Urine Bilirubin Urobilinogen Dipstick Urine Leukocytes Urine WBC (Auto) Urine RBC (Auto) U Epithel Cells (Auto) Urine Bacteria (Auto) 07/26/19 07/26/19 13:35 14:14 WBC 7.20 RBC 4.45 Hgb 13.2 Hct 39.1 MCV 87.9 MCH 29.7 MCHC 33.8 RDW Std Deviation 12.5 Plt Count 186 MPV 12.4 H Immature Gran % (Auto) 0.4 Neut % (Auto) 58.8 Lymph % (Auto) 33.1 Cole % (Auto) 7.2 Eos % (Auto) 0.4 Baso % (Auto) 0.1 Immature Gran # (Auto) 0.03 Neut # (Auto) 4.23 Lymph # (Auto) 2.38 Cole # (Auto) 0.52 Eos # (Auto) 0.03 Baso # (Auto) 0.01 Sodium Potassium Chloride Carbon Dioxide Anion Gap BUN Creatinine Estimated GFR/1.73 m2 BUN/Creatinine Ratio Glucose POC Glucose Calculated Osmolality Calcium Total Bilirubin AST ALT Alkaline Phosphatase Creatine Kinase Troponin T Total Protein Albumin Globulin Albumin/Globulin Ratio Urine Source CLEAN CATCH Urine Color YELLOW Urine Turbidity CLEAR Urine pH 6.0 Ur Specific Napoleon 1.017 Urine Protein 30 A Ur Glucose (Stick) 100 A Ur Ketones (Stick) NEGATIVE Urine Blood NEGATIVE Urine Nitrite NEGATIVE Urine Bilirubin NEGATIVE Urobilinogen Dipstick NORMAL Urine Leukocytes NEGATIVE Urine WBC (Auto) <10 Urine RBC (Auto) <10 U Epithel Cells (Auto) <10 Urine Bacteria (Auto) NEGATIVE Orders Category Date Time Status CHEST-2 VIEWS [RAD] Stat Exams 07/26/19 13:24 Completed CBC WITH ELECTRONIC DIFF [HEME] Stat Lab 07/26/19 13:35 Completed CK PROFILE [SP CHEM] Stat Lab 07/26/19 13:35 Completed COMPREHENSIVE METABOLIC PANEL [CHEM] Stat Lab 07/26/19 13:35 Completed TROPONIN T Stat Lab 07/26/19 13:35 Completed UA NIMS W/REFLEX CULT [URINALYSIS] Stat Lab 07/26/19 14:14 Completed 0.9% Sodium Chloride Inj [Ns] 1,000 ml Med 07/26/19 14:51 Ordered IV 200 mls/hr Insulin Human Regular [Humulin R] Med 07/26/19 14:50 Once 5 unit IV NOW ONE EKG [EKG] Stat Ther 07/26/19 13:38 Ordered Result Diagrams: 07/26/19 13:35 07/26/19 13:35 - EKG 1 Time of EKG reading by physician:: 13:26 EKG Read and Signed by:: Jamie Linda EKG Interpretation (*Must complete 3 of following elements*): Normal Rate: 70 Rhythm: NSR with sinus arrhythmia [place]: normal QRS: normal [place] Interval: normal ST Wave: normal - XRAY 1 XRAY Study: Chest Impression: See EMR Report (CHEST-2 VIEWS - 07/26/2019 INDICATION: epigastric pain COMPARISON: 02/10/2019 FINDINGS: The lungs are normally expanded and clear. Heart size and mediastinal contours are normal. No pneumothorax or pleural effusion. IMPRESSION: Negative exam. Electronically signed by Woo Ramirez 07/26/2019 2:06 PM 07/26/19 1406 Interpreting Physician: Woo Ramirez MD Dictated Date/Time: 07/26/19 1406 cc: Jamie Linda DO; Woo Garcia Jr, MD) - CONSULTS/PCP/HOSPITALIST Notification #1 *Consult/PCP/Hospitalist*: Dara Time Discussed: 14:55 Consult Disposition: Will see in ED Departure - Departure Date of Disposition Decision: 07/26/19 Time of Disposition Decision: 14:55 DIAGNOSIS: Hyperkalemia Disposition: ADMITTED INPATIENT 09 Certified Medical Emergency: Emergent Condition: Fair Referrals and Follow-Ups: Woo Garcia Jr, MD [Primary Care Provider] - - Critical Care Note This patient required my direct & personal management of CC.: No Attestation - Physician/ PANCHO Attestation Patient care was provided by Advanced Practice Provider:: No The physician spent face to face time with patient:: Yes Advanced Practice Provider documentation review:: Supervising physician onsite and consulted in the evaluation and care of this patient. The physician did have a face to face encounter with the patient. This chart was documented by the indicated scribe, (Mohit Kwan Scribe) and accurately reflects the services I performed and decisions made by , Jamie Linda DO, as attested by the provider's signature.
[2019-07-26] MEDS ORDERED: ALBUTEROL 0.5% INH CONC FOR HYPERKALEMIA INH ONE (15:06)
[2019-07-26] MEDS ORDERED: CALCIUM GLUCONATE 1 GM in NS 50 ML IV ONE (15:06)
[2019-07-26] MEDS ORDERED: SODIUM BICARBONATE 8.4% IV ONE (15:07)
[2019-07-26] MEDS ORDERED: SORBITOL PO ONE (15:07)
[2019-07-26] MEDS ORDERED: ZOFRAN IV PRN (16:02)
[2019-07-26 16:11] LABS: UR CREAT RANDOM 78.9 mg/dL (11-20); UR PROT RANDOM 33.2 mg/dL
--- NOTE | 2019-07-26 16:23 | Diag Imaging Result Doc PS360 ---
ABDOMEN FLAT/UPRIGHT - 07/26/2019 INDICATION: abdominal pain/nausea COMPARISON: None FINDINGS: There is perhaps mild constipation of the ascending colon. No distended bowel loops. No obstruction or free air. IMPRESSION: Mild constipation but no acute disease. Electronically signed by Woo Ramirez 07/26/2019 4:21 PM
--- NOTE | 2019-07-26 16:27 | HISTORY AND PHYSICAL ---
CHIEF COMPLAINT: Anxiety. HISTORY OF PRESENT ILLNESS: This is a 67-year-old female with a history of cerebral palsy, epilepsy, learning disability, bipolar disorder, diabetes mellitus type 2, hypothyroid, schizoaffective disorder, who presents to the emergency room complaining of anxiety. She states that she had some epigastric pain along with 1 episode of vomiting last night. She took 4 Benadryl, although is unsure what time she took it. Stories vary between last night and just before coming to the emergency room. She denied any syncope, dizziness, any diarrhea, constipation, black or bloody vomitus or stools. The patient is very anxious. She keeps saying over and over and over, "I just put me in a fdc because I can't do anything with myself." "Just stick a pillow over my face." PAST MEDICAL HISTORY: 1. Cerebral palsy. 2. Epilepsy. 3. Learning disability. 4. Schizoaffective bipolar disorder. 5. Hypertension. 6. Diabetes mellitus, type 2. 7. Hypothyroid. 8. Iron deficiency anemia. 9. Hypertension. These are taken from the chart. PAST SURGICAL HISTORY: Hysterectomy. SOCIAL HISTORY: She denies smoking, alcohol, or illicit drug use. ALLERGIES: She is allergic to eggs with unknown reaction, Zyprexa, butalbital, Neisha, phenobarbital, Sudafed, Klonopin, Haldol, Seroquel, Risperdal, codeine, hydrocodone, and Geodon. HOME MEDICATIONS: A list will be obtained by the nursing staff. We will have to call the pharmacy and review, as the patient only states that she takes "a sugar pill and a sugar shot." REVIEW OF SYSTEMS: Unable to obtain from the patient as she becomes very anxious during discussion and will not complete the review. PHYSICAL EXAMINATION: GENERAL: This is a 59-year-old female, who is lying on the bed in the emergency room and in mild distress. VITAL SIGNS: Blood pressure is 160/83 with heart rate of 67, respirations are 17, temperature is 98.3 degrees with room air saturations 97%. HEENT: Head is normocephalic, atraumatic. Mucous membranes are moist. NECK: Supple with trachea midline. CARDIOVASCULAR: Regular rate and rhythm. S1 and S2 appreciated. She has no lower extremity edema. Peripheral pulses are palpable x4 extremities. PULMONARY: Breath sounds are clear. Chest rises and falls symmetric with respiration. GASTROINTESTINAL: Abdomen is soft, nontender, nondistended with bowel sounds in all 4 quadrants. NEUROLOGIC: She is alert. She is oriented to person, place, and time. She followed commands at times. She has flight of ideas. She becomes agitated with questions. DIAGNOSTIC STUDIES: WBC is 7.2 with hemoglobin 13.2, hematocrit 39.1, and platelets 186,000. Sodium 140, potassium 6.4, BUN 30, creatinine 1.4 with a glucose of 271, calcium is 10.6. Urinalysis is essentially negative. Chest x-ray reveals negative exam. ASSESSMENT AND PLAN: 1. Hyperkalemia. We will review her medications and hold any potassium. Start IV hydration. Give calcium gluconate, 10 units of regular insulin, an amp of sodium bicarbonate, 30 mL of sorbitol with 8.4 g of Veltassa. Repeat a renal profile at 9 o'clock. We will review her medications and hold any potassium-containing medications. 2. Chronic kidney disease with a baseline creatinine of 1.1 to 1.3. We will give IV hydration. Review her medications and hold any diuretics or renal-toxic medications. Renal dose medications as appropriate. 3. Diabetes mellitus, type 2. Pattern blood glucose with sliding scale insulin. 4. Nausea/vomiting, epigastric pain. We will get a flat and upright of the abdomen. Give Zofran for nausea. 5. Schizoaffective bipolar disorder. We will attempt to find her medications to continue once she is medically cleared. A [place] consult. 6. Hypertension. We will trend vital signs. Continue with home medications as appropriate. 7. Hypothyroidism. We will check a TSH and continue home medications. 8. Iron deficiency anemia. Give Icar C. 9. For DVT prophylaxis, we will use SCDs. 10. GI prophylaxis. PPI. Plan was discussed with Dr. Mejia. Further treatments pending hospital course. Dictated by MIKE Franz for Terri Mejia MD cc: MIKE Franz MD I performed a face to face encounter on the patient. I reviewed all labs and imaging on the patient. I agree with the H&P as dictated. [facility]
[2019-07-26] MEDS ORDERED: TYLENOL PO PRN (17:10)
[2019-07-26] MEDS: NS 1,000 ML IV SCH (17:32)
[2019-07-26] MEDS: KEPPRA PO SCH (20:23)
[2019-07-26] MEDS: HUMULIN R SUBQ SCH (20:23)
[2019-07-26] MEDS: GEODON PO SCH (20:23)
[2019-07-26 21:56] LABS: ALBUMIN 4.1 g/dL (3.5-5.0); CALCIUM 9.7 mg/dL (8.8-10.2); CREATININE 1.4 mg/dL (0.5-0.9); PHOSPHORUS 4.1 mg/dL (2.7-4.5); POTASSIUM 5.4 mmol/L (3.5-5.1)
[2019-07-27] MEDS: NS 1,000 ML IV SCH ×4 (04:12→23:27)
[2019-07-27] MEDS: VELTASSA PO SCH ×2 (04:37→10:13)
[2019-07-27 06:43] LABS: HEMATOCRIT 35.8 % (37.0-47.0); HEMOGLOBIN 11.8 g/dL (12.0-16.0); MCH 30.3 PG (27-31); MCV 91.8 FL (81-99); MPV 12.3 FL (7.4-10.4); RBC 3.9 XMIL (4.2-5.4); RDW 12.7 % (11.5-14.5); WBC 5.42 X1000 (4.8-10.8)
[2019-07-27 06:48] LABS: ALBUMIN 4.2 g/dL (3.5-5.0); CALCIUM 9.4 mg/dL (8.8-10.2); CREATININE 1.3 mg/dL (0.5-0.9); PHOSPHORUS 4.2 mg/dL (2.7-4.5); POTASSIUM 5.2 mmol/L (3.5-5.1)
[2019-07-27] MEDS: HUMULIN R SUBQ SCH ×5 (07:00→21:17)
[2019-07-27] MEDS: KEPPRA PO SCH ×2 (10:12→21:16)
[2019-07-27] MEDS: VITAMIN D PO SCH (10:12)
[2019-07-27] MEDS: GEODON PO SCH ×2 (10:12→21:16)
[2019-07-27] MEDS: SINGULAIR PO SCH (10:12)
[2019-07-27] MEDS: ALPHAGAN 0.2% OPHTH SOLN OPH SCH ×3 (10:13→21:16)
[2019-07-27] MEDS: LEVEMIR SUBQ SCH ×4 (10:14→23:06)
--- NOTE | 2019-07-27 10:21 | Diag Imaging Result Doc PS360 ---
US RENAL 2 (RETROPER) COMPLETE - 07/27/2019 INDICATION: KARIME/CKD, hyperkalemia TECHNIQUE: COMPARISON: CT from 05/04/2019 FINDINGS: The kidneys are normal bilaterally. No mass or hydronephrosis. The right kidney measures 12.5 x 5.5 x 5.2 cm. The left kidney measures 12.2 x 5.7 x 6.3 cm. IMPRESSION: Negative exam. Electronically signed by Woo Ramirez 07/27/2019 10:19 AM
--- NOTE | 2019-07-27 10:48 | PROGRESS NOTE ---
DATE: 07/27/2019 SUBJECTIVE: The patient is sitting up in a chair, eating breakfast. She states that she feels a little bit better today. No acute events noted overnight. OBJECTIVE: Vital Signs: Temperature 98.2 degrees, blood pressure 129/57, heart rate 85, respirations 24, O2 saturation is 97% on room air. General: This is an elderly female, sitting in a chair in no acute distress. Heart: S1, S2 normal. Regular rate and rhythm. Lungs: Equal air entry bilaterally. No wheezing. No rales. No rhonchi. Abdomen: Positive bowel sounds. Soft, nontender, nondistended. Extremities: No edema. No cyanosis. Neurologic: The patient is alert and oriented x3. She appears to be anxious. LABORATORY DATA: White blood cell count 5.4, hemoglobin 11, hematocrit 35, platelets 149,000. Sodium 138, potassium 5.2, chloride 102, CO2 of 23, BUN 26, creatinine 1.3, glucose 283. Phosphorus 4.2. ASSESSMENT AND PLAN: 1. Hyperkalemia. Slightly improved. Will continue on Veltassa, and monitor the potassium level closely. 2. Chronic kidney disease stage 3. Stable. 3. Schizoaffective disorder bipolar type. Continue on Geodon. 4. Seizure disorder. Continue on Keppra. 5. Diabetes mellitus type 2. Continue on Levemir and sliding scale insulin. 6. Deep vein thrombosis prophylaxis. Will start the patient on heparin. Disposition: Will order PT and discharge planning. cc: Terri Mejia MD [facility] CENTERBhupendra
[2019-07-27] MEDS: LOVENOX SUBQ SCH (11:23)
[2019-07-28] MEDS: NS 1,000 ML IV SCH (06:27)
[2019-07-28 06:45] LABS: HEMATOCRIT 36.6 % (37.0-47.0); MCH 29.8 PG (27-31); MCHC 32.8 g/dL (33-37); MCV 90.8 FL (81-99); MPV 12.3 FL (7.4-10.4); RBC 4.03 XMIL (4.2-5.4); RDW 12.5 % (11.5-14.5); WBC 6.48 X1000 (4.8-10.8)
[2019-07-28] MEDS: HUMULIN R SUBQ SCH ×3 (06:55→21:41)
[2019-07-28 07:27] LABS: ALBUMIN 4.4 g/dL (3.5-5.0); CREATININE 1.1 mg/dL (0.5-0.9); PHOSPHORUS 4.2 mg/dL (2.7-4.5); POTASSIUM 4.9 mmol/L (3.5-5.1)
--- NOTE | 2019-07-28 09:05 | PROGRESS NOTE ---
DATE: 07/28/2019 HISTORY: Ms. Montes was admitted on 07/26/2019. A 67-year-old history of cerebral palsy, epilepsy, learning disability, bipolar disorder, diabetes mellitus type 2, hypothyroidism, schizoaffective disorder, presented to the emergency department complaining of anxiety. States she has had some epigastric pain and an episode of vomiting last night. She took 4 Benadryl, unsure what time she took it. The stories vary between last night and just before coming to the emergency room. She denied any syncope, dizziness, any diarrhea, constipation, black or bloody vomitus or stools. Patient is very anxious, keeps saying over just put me in a senior care because I cannot do anything by myself, just this stick a pillow over my face. PAST MEDICAL HISTORY: 1. Cerebral palsy. 2. Epilepsy. 3. Learning disability. 4. Schizoaffective bipolar disorder. 5. Hypertension. 6. Diabetes mellitus type 2. 7. Hypothyroidism. 8. Iron deficiency anemia. 9. Hypertension. SUBJECTIVE: The patient was sitting up in a chair. She was more concerned with her blood sugar which was 160. Blood pressure has still been running a little bit high. We talked about going home. She says she does not have a ride today. We will work a little more on her blood sugar and see if we can get her blood pressure down a little better. I am not sure what the home situation is. She did have hyperkalemia when she came in and that is resolved. Creatinine is down to 1.1. Her renal ultrasound negative exam. Chest x-ray from 07/26 negative and abdominal x-ray on 07/26 showed mild constipation but no acute disease. REVIEW OF ORDERS: She is on vitamin D3 5000 units p.o. daily, she is on insulin detemir 30 units subcutaneous b.i.d., Keppra 500 mg b.i.d. p.o., Singulair 10 mg daily, normal saline 75 mL an hour, Veltassa 8.4 mg p.o. daily and Geodon 40 mg p.o. b.i.d.. cc: Vinnie Caballero MD
[2019-07-28] MEDS: VELTASSA PO SCH (09:20)
[2019-07-28] MEDS: KEPPRA PO SCH ×2 (09:20→21:42)
[2019-07-28] MEDS: GEODON PO SCH ×2 (09:20→21:42)
[2019-07-28] MEDS: VITAMIN D PO SCH (09:20)
[2019-07-28] MEDS: SINGULAIR PO SCH (09:20)
[2019-07-28] MEDS: ALPHAGAN 0.2% OPHTH SOLN OPH SCH ×3 (09:21→21:40)
[2019-07-28] MEDS: LEVEMIR SUBQ SCH ×2 (09:22→21:41)
[2019-07-28] MEDS: LOVENOX SUBQ SCH ×2 (11:15→11:53)
[2019-07-28] MEDS ORDERED: INSULIN PEN NEEDLES ONE (21:44)
[2019-07-29] MEDS: HUMULIN R SUBQ SCH ×2 (06:35→10:47)
[2019-07-29 08:05] LABS: HEMATOCRIT 38.8 % (37.0-47.0); MCH 29.5 PG (27-31); MCHC 33.5 g/dL (33-37); MPV 11.8 FL (7.4-10.4); RBC 4.41 XMIL (4.2-5.4); RDW 12.5 % (11.5-14.5); WBC 5.96 X1000 (4.8-10.8)
[2019-07-29 08:23] LABS: ALBUMIN 4.5 g/dL (3.5-5.0); CREATININE 1.1 mg/dL (0.5-0.9); PHOSPHORUS 3.9 mg/dL (2.7-4.5); POTASSIUM 4.4 mmol/L (3.5-5.1)
[2019-07-29] MEDS: LEVEMIR SUBQ SCH (08:53)
[2019-07-29] MEDS: VITAMIN D PO SCH (08:54)
[2019-07-29] MEDS: KEPPRA PO SCH (08:54)
[2019-07-29] MEDS: GEODON PO SCH (08:54)
[2019-07-29] MEDS: SINGULAIR PO SCH (08:54)
[2019-07-29] MEDS: VELTASSA PO SCH (08:54)
[2019-07-29] MEDS: ALPHAGAN 0.2% OPHTH SOLN OPH SCH (08:55)
[2019-07-29] MEDS: LOVENOX SUBQ SCH (10:46)
--- NOTE | 2019-07-29 10:59 | DISCHARGE SUMMARY ---
ADMISSION DATE: 07/26/2019 DISCHARGE DATE: 07/29/2019 HISTORY OF PRESENT ILLNESS: This is a 59-year-old female with a history of cerebral palsy, epilepsy, learning disability, bipolar disorder, diabetes mellitus type 2, hypothyroidism, schizoaffective disorder, who presented to the emergency room with complaints of anxiety. States that she has had some epigastric pain, one episode of vomiting the night before. She took about 4 Benadryl, unsure what time she took it, between last night and just before coming to the emergency room. She denied any syncope, dizziness, diarrhea, constipation, black or bloody vomitus or stools. The patient is very anxious, kept saying over and over again, "just put me in a retirement because I can't do anything with myself, just stick a pillow over my face." PAST MEDICAL HISTORY: 1. Cerebral palsy. 2. Epilepsy. 3. Learning disability. 4. Schizoaffective bipolar disorder. 5. Hypertension. 6. Diabetes mellitus type 2. 7. Hypothyroidism. 8. Iron-deficiency anemia. 9. Hypertension. PAST SURGICAL HISTORY: Hysterectomy. ASSESSMENT: Admitted with: 1. Some hyperkalemia. Given some calcium gluconate, amp of bicarb, 30 mL of sorbitol, and 8.5 grams of [place], and potassium came down nicely. 2. Chronic kidney disease. Baseline creatinine 1.1 to 1.3. Was given some intravenous hydration, and renal function improved. 3. Diabetes mellitus type 2. Sugars were running very high. Not sure how well controlled they are at home. 4. Nausea and vomiting, which resolved with some fluids. 5. Schizoaffective bipolar disorder. Continued her present medication, and that remained fairly well controlled. 6. Hypertension. Blood pressure controlled. 7. Hypothyroidism. Aware. She appeared to be euthyroid. 8. Iron-deficiency anemia. We did put her on Icar-C. She showed steady improvement, blood sugars came down, and felt like she was ready for discharge. DISCHARGE MEDICATIONS: She is on Keppra 500 mg twice a day, Singulair 10 mg a day, she takes her Geodon 40 mg p.o. b.i.d., and she is on Levemir 30 units twice a day for her insulin, she takes eyedrops, Alphagan 0.2% three times a day. DISPOSITION: Will discharge her home. cc: Vinnie Caballero MD
[2019-07-29 11:56] VITALS: BP 143/64
== END 2019-07-29 13:11 | disposition home health service (06) | DRG 641 ==
LOC: SUPCPDRO → ED 13:09 → SUATTDRO 17:03 → 4N 17:03
PROVIDERS: ATTEND Emergency Medicine